=== PATIENT | male | born 1965 | race Caucasian/White ===

== ENCOUNTER 2023-11-13 05:09 | Emergency (ER) | payer OTHER, SELFPAY ==
[2023-11-13 05:20] VITALS: BP 126/98; PULSE 96; RESP 16; TEMP 36.7; O2SAT 93; BMI 32.2
--- NOTE | 2023-11-13 07:21 | ED.GENADULT ---
HPI - General Adult General Chief complaint: General Medical Stated complaint: coughing up blood, esophagus pain Time Seen by Provider: 11/13/23 07:31 Source: patient and RN notes reviewed Mode of arrival: ambulatory Limitations: no limitations History of Present Illness ED Provider: Sanna Samayoa PA-C HPI narrative: This is a 57-year-old male, with a history of esophageal problems requiring dilation of the esophagus, who presents emergency department with complaints of episode of stuck steak. Patient states that this morning he was eating breakfast and felt stick gets stuck in his throat, he coughed multiple times and was able to get the steak down however states that he coughed up some blood during this incident. He states that he has been able to drink genie zeeshan since this. He denies any fevers or chills. No chest pain or shortness for breath. He also endorses some epigastric fullness, otherwise no abdominal pain, vomiting, diarrhea or constipation. He is reporting no difficulty swallowing or breathing. No other complaints or concerns at this time. MD complaint: Cough up blood Onset (ago): day(s) Radiation: non-radiation Severity: moderate Relieving factors: none Exacerbating factors: none Associated symptoms: denies other symptoms Treatments prior to arrival: none Related Data Allergies Allergy/AdvReac Type Severity Reaction Status Date / Time No Known Allergies Allergy Verified 11/13/23 05:25 Review of Systems Review of Systems: Yes all other systems are reviewed and are negative Constitutional: Constitutional: Reports as per [facility] Past Medical History Attestation statement: The following information was validated with the patient. Social History Social History Alcohol intake: current Alcohol intake frequency: holidays/special occasions only Smoked in Last 30 Days: No Use of substances other than those prescribed or required for medical reasons: No Advance Directives: No Advance Directives Information Provided: Yes Do you have a plan to hurt others: No Plan Physical Exam ED Vital Signs: Vital Signs - 24 hr 11/13/23 05:20 11/13/23 07:41 Temperature 98.0 F Pulse Rate 96 97 Respiratory Rate 16 16 Blood Pressure 126/98 H 132/93 H Pulse Oximetry 93 94 Oxygen Delivery Method Room Air Room Air BMI result Body Mass Index 32.2 Const General: cooperative, comfortable and no acute distress Orientation/consciousness: patient oriented x3 Limitations: no limitations [facility] Head: Yes normal to inspection, Yes normocephalic and Yes atraumatic Ears: hearing grossly normal bilaterally General nose exam: Normal external nose present Face and sinus: Yes normal facial exam Mouth: Normal oral and palatal mucosa present, oropharynx normal and moist mucous membranes Throat: Yes posterior oropharynx normal Eyes General: appearance normal, both eyes and all related structures Eyelids: Yes eyelids normal Conjunctivae: conjunctivae normal Sclerae: sclerae normal Pupils: Equal, round and reactive pupils present EOM: EOMs intact bilaterally Neck Neck: Yes normal visual inspection, Yes full ROM and Yes no lymphadenopathy Lymphatic: no lymphadenopathy noted Chest Chest palpation & inspection: normal inspection of the chest Resp Effort & Inspection: normal respiratory effort and able to speak in complete sentences Auscultation: clear to auscultation bilaterally, no crackles, no rales, no rhonchi and no wheezes Cardio Rate: regular rate Rhythm: regular rhythm Heart sounds: S1 normal heart sound present and S2 normal heart sound present GI Other: Abdomen is soft, nontender, nondistended Inspection: Yes normal to inspection Skin General skin exam: no rashes or lesions noted Trauma: no lacerations or abrasions Wounds: no wounds Neuro General: patient oriented x3 and moves all extremities Cranial nerves: Yes Equal, round and reactive pupils present Extrem General: Yes normal to inspection Right upper extremity: normal to inspection Left upper extremity: normal to inspection Right lower extremity: normal to inspection Left lower extremity: normal to inspection Course Reevaluation(s) Reevaluation #1: Labs returned, patient has slight leukocytosis at 10.9, H&H within normal limits, chemistry within normal limits. Troponin less than 2.9, he has no chest pain. EKG normal sinus rhythm no ST elevation or depression. Time: 08:42 Reevaluation #2: Patient re-evaluated, he is feeling well, he was able to fully drink the Maalox without return of his symptoms. He has not had any vomiting, hemoptysis or hematemesis. He is feeling well. I discussed today's workup as everything is reassuring. Given that he is able to tolerate p.o. without difficulty, patient will be discharged with strict return precautions. He understands and agrees with plan. Given GI referral for follow-up, advised to call tomorrow to make an appointment. He understands and agrees with plan. Patient stable for discharge. Time: 08:50 Medications Administered Discontinued Medications Generic Name Dose Route Start Last Admin Trade Name Javier PRN Reason Stop Dose Admin Al Hydroxide/Mg Hydroxide 30 ml 11/13/23 07:28 11/13/23 07:41 Magnesium Hydrox/Alum Hydrox 30 Ml Oral.Susp PO 11/13/23 07:29 30 ml ONCE ONE Administration Medical Decision Making Medical Decision Making [facility] Narrative: This is a 57-year-old male, with a history of esophageal problems and hypertension who presents emergency department with complaints of state that was hard to swallow, and coughed up blood. On arrival, vital signs within normal limits. He is nontoxic appearing, speaking full sentences, patient is not actively vomiting blood or coughing up blood. He has been able to take several sips of genie zeeshan without difficulty. Patient has a history of similar symptoms in the past which required to have surgical intervention at [facility]. He states that he has not followed up with the GI specialist. He is unsure if he had esophageal strictures. I discussed case with my attending physician, Dr. Zelaya, recommends getting basic labs as well as p.o. trial. Given he is drinking without return of symptoms, will hold off on diagnostic imaging at this time. Plan: Labs, p.o. challenge with Maalox Differential Diagnosis Differential Diagnoses: The differential diagnosis associated with the presentation includes Esophageal stricture, Boerhaave syndrome, esophageal varices Admission/Observation Consideration of admission/observation: Escalation of care including admission/observation considered Lab Data [facility] Lab Attestation statement: I reviewed the patient's lab results. Slight leukocytosis at 10.9, chemistry within normal limits, slight hyperglycemia at 1:17 a.m., negative troponin, liver enzymes within normal limits. 11/13/23 07:28 11/13/23 07:50 Labs: Lab Results 11/13/23 11/13/23 11/13/23 Range/Units 07:28 07:50 08:05 WBC 10.9 H (4.8-10.8) X10*3/uL RBC 4.68 (4.60-5.80) X10*6/uL Hgb 14.4 (14.0-18.0) g/dl Hct 41.5 L (42.0-52.0) % MCV 88.7 (80.0-98.0) fL MCH 30.8 (27.0-33.0) pg MCHC 34.7 (31.0-36.0) g/dl RDW 13.2 (11.0-16.0) % Plt Count 279 (160-400) X10*3/uL MPV 9.4 (9.4-12.4) fL Immature Gran % (Auto) 1.0 H (0.0-0.4) % Neut % (Auto) 79.1 H (45-73) % Lymph % (Auto) 11.5 L (20-40) % [place] % (Auto) 7.0 (2-11) % Eos % (Auto) 1.0 (0-4) % Baso % (Auto) 0.4 (0-2) % Lymph # (Auto) 1.3 (1.2-4.9) X10*3/uL [place] # (Auto) 0.8 (0.1-1.2) X10*3/uL Eos # (Auto) 0.1 (0.0-0.4) X10*3/uL Baso # (Auto) 0.0 (0.0-0.2) X10*3/uL Abs Immat Gran (auto) 0.11 H (0.00-0.03) X10*3/uL Absolute Neuts (auto) 8.6 H (2.0-8.3) x10*3/uL Absolute Nucleated RBC 0.000 (0.0-0.012) X10*3/uL Nucleated RBC % (auto) 0.0 (0.0-0.2) /100WBC PT 12.5 (11.1-13.3) SEC INR 1.0 (0.9-1.1) APTT 28.8 (26.0-36.8) SEC Sodium 140 (135-145) mmol/L Potassium 3.5 (3.3-5.1) mmol/L Chloride 104 (96-108) mmol/L Carbon Dioxide 28 (22-29) mmol/L Anion Gap 12 (12-20) BUN 16 (9-16) mg/dL Creatinine 0.99 (0.5-1.4) mg/dL Estim Creat Clear Calc 97.7 Estimated GFR > 60 Random Glucose 117 H (60-115) mg/dL Calcium 9.2 (8.4-10.2) mg/dL Total Bilirubin 0.7 (0.0-1.0) mg/dL Direct Bilirubin 0.2 (0.0-0.5) mg/dL AST 22 (5-37) U/L ALT 18 (0-40) U/L Alkaline Phosphatase 89 (39-117) U/L Troponin I High Sens 2.9 (<3.5-35.0) ng/L Total Protein 7.5 (6.5-8.0) g/dL Albumin 3.9 (3.5-5.0) g/dL Independent Interpretation I performed an independent interpretation of an: EKG Interpretation: EKG normal sinus rhythm at a ventricular rate of 100 beats per minute, NJ interval 136, QT/QTC 358/461. No ST elevation or depression Discharge Plan Discharge Clinical Impression: Dysphagia Patient Disposition: Home, Self-Care Instructions: Soft Diet (ED), Dysphagia (ED) Additional Instructions: Your labs and work up today were reassuring. You were able to tolerate food/drink by mouth without return of your symptoms. You need to follow-up with GI for further management of your symptoms. Call today to make an appointment. If any new or worsening symptoms occur including but not limited to inability to swallow, chest pain, shortness of breath, vomiting blood, coughing up blood, please return for re-evaluation. Referrals: [facility] [Provider Group] Print Language: Bulgarian
--- NOTE | 2023-11-13 07:28 | ECG_ITS ---
Test Reason : EPIGASTRIC PAIN Blood Pressure : / mmHG Vent. Rate : 100 BPM Atrial Rate : 100 BPM P-R Int : 136 ms QRS Dur : 098 ms QT Int : 358 ms P-R-T Axes : 045 -17 039 degrees QTc Int : 461 ms Normal sinus rhythm Minimal voltage criteria for LVH, may be normal variant ( R in aVL ) Borderline ECG No previous ECGs available Referred By: Sanna Samayoa Electronically Signed By:SOMMER DORAN MD
[2023-11-13 07:41] VITALS: BP 132/93; PULSE 97; RESP 16; O2SAT 94
[2023-11-13] MEDS: Magnesium Hydrox/Alum Hydrox 30 ML ORAL.SUSP PO (07:41)
[2023-11-13 08:09] LABS: Basophils Percent Auto 0.4 % (0-2); Eosinophils Absolute Auto 0.1 X10*3/uL (0.0-0.4); Hematocrit 41.5 % (42.0-52.0); Hemoglobin 14.4 g/dl (14.0-18.0); Imm Gran Abs Auto 0.11 X10*3/uL (0.00-0.03); Lymphocytes Absolute Auto 1.3 X10*3/uL (1.2-4.9); Lymphocytes Percent Auto 11.5 % (20-40); MANUAL DIFF FLAG NO; Mean Corpuscular HGB Conc 34.7 g/dl (31.0-36.0); Mean Corpuscular Hemoglobin 30.8 pg (27.0-33.0); Mean Corpuscular Volume 88.7 fL (80.0-98.0); Mean Platelet Volume 9.4 fL (9.4-12.4); Monocytes Absolute Auto 0.8 X10*3/uL (0.1-1.2); Neutrophils Absolute Auto 8.6 x10*3/uL (2.0-8.3); Neutrophils Percent Auto 79.1 % (45-73); Platelet Count 279 X10*3/uL (160-400); Red Blood Count 4.68 X10*6/uL (4.60-5.80); Red Cell Distribution Width 13.2 % (11.0-16.0); White Blood Count 10.9 X10*3/uL (4.8-10.8)
[2023-11-13 08:19] LABS: Partial Thromboplastin Time 28.8 SEC (26.0-36.8); Prothrombin Time 12.5 SEC (11.1-13.3)
[2023-11-13 08:36] LABS: Alanine Aminotransferase 18 U/L (0-40); Aspartate Amino Transferase 22 U/L (5-37); Bilirubin Direct 0.2 mg/dL (0.0-0.5); Blood Urea Nitrogen 16 mg/dL (9-16); Troponin-I High Sensitivity 2.9 ng/L (<3.5-35.0)
[2023-11-13 08:37] LABS: Alkaline Phosphatase 89 U/L (39-117); Anion Gap 12 (12-20); Bilirubin Total 0.7 mg/dL (0.0-1.0); Carbon Dioxide 28 mmol/L (22-29); Creatinine Clr Calc Pharmacy 97.7; Estimated Glomerular Filt Rate > 60; Glucose Random 117 mg/dL (60-115); Total Protein 7.5 g/dL (6.5-8.0)
[2023-11-13 08:38] LABS: Albumin Level 3.9 g/dL (3.5-5.0); Calcium 9.2 mg/dL (8.4-10.2); Chloride 104 mmol/L (96-108); Potassium 3.5 mmol/L (3.3-5.1); Sodium 140 mmol/L (135-145)
[2023-11-13 09:04] VITALS: BP 132/93; PULSE 97; RESP 16; TEMP 36.7; O2SAT 95
== END 2023-11-13 09:05 | disposition home or self-care (01) ==
PROVIDERS: Physician Assistant Medical; Emergency Provider Internal Medicine; PCP Nurse Practitioner Family
DX: R13.10 Dysphagia, unspecified (principal)
CPT/HCPCS: 36415; 80048; 80076; 84484; 85025; 85610; 85730; 93005; 99283; 99284

== ENCOUNTER → 2023-11-13 07:28 | Outpatient (BNV) | payer OTHER, SELFPAY | PROVIDERS: Emergency Provider Internal Medicine; PCP Nurse Practitioner Family; Visit Provider Internal Medicine Cardiovascular Disease | DX: R10.13 Epigastric pain (principal) | CPT/HCPCS: 93010 ==